=== PATIENT | male | born 1960 | race Caucasian/White ===

== ENCOUNTER → 2017-02-27 | Outpatient (CLI) | payer OTHER ==
[~2017-02-27] MED LIST: ALDACTONE100 MG PO; ALDACTONE50 MG PO; ATIVAN2 MG/ML IV; Aldactone PO; B COMPLETE1 EACH PO; BENTYL20 MG PO; CEFACLOR ER500 MG PO; CHRONULAC,CEPHU30 ML PO; CONSTULOSE10 GM/15 M PO; CORGARD20 MG PO; Chronulac,Cephulac,E PO; ENULOSE10 GM/15 M PO; ERGOCALCIF50000 UNIT PO; FOLIC ACID1 MG PO; FOLVITE1 MG PO; FUROSEMIDE20 MG PO; GENERLAC10 GM/15 M PO; K-DUR20 MEQ PO; K-Dur PO; K-TAB10 MEQ PO; LASIX20 MG PO; LASIX40 MG PO; Lasix PO; MELOXICAM15 MG PO; MICRO-K,K-DUR,10 ME1 PO; MICRO-K10 ME2 PO; NADOLOL20 MG PO; NEXIUM20 MG PO; OMEPRAZOLE20 M1 PO; OMEPRAZOLE20 MG PO; OMEPRAZOLE40 M1 PO; OXYCODONE HCL5 MG PO; OxyCODONE PO; PANTOPRAZOLE SO40 MG PO; POTASSIUM CHLO10 ME3 PO; POTASSIUM CHLO10 ME4 PO; PRILOSEC20 MG PO; PROTONIX40 MG PO; Protonix PO; RANITIDINE HCL150 MG PO; ROXICODONE5 MG PO; SODIUM CHLORIDE1 G1 PO; SPIRONOLACTONE100 MG PO; SPIRONOLACTONE50 MG PO; THIAMINE,VITAM100 MG PO; VITAMIN B-1100 MG PO; VITAMIN B1,100 MG/ML PO; VITAMIN D250000 UNIT PO; VITAMIN D35000 UNIT PO; VITAMIN D35000 UNIT/ PO; VITAMIN D50000 UNI4 PO; Vitamin D, Drisdol PO; Xifaxan PO; oxyCODONE PO
== END | disposition home or self-care (01) ==
LOC: RAD 08:38
DX: R18.8 Other ascites (principal)
CPT/HCPCS: 76705

== ENCOUNTER → 2017-02-28 | Outpatient (CLI) | payer OTHER | END | disposition home or self-care (01) | LOC: RAD 10:00 | PROC: 0W9G3ZZ Drainage of Peritoneal Cavity, Percutaneous Approach (ICD-10-PCS; principal; 2017-02-28) | DX: R18.8 Other ascites (principal) | CPT/HCPCS: 49083 ==

== ENCOUNTER → 2017-03-20 | Outpatient (CLI) | payer OTHER | END | disposition home or self-care (01) | LOC: RAD 03-12 08:30 | PROC: 0W9G3ZZ Drainage of Peritoneal Cavity, Percutaneous Approach (ICD-10-PCS; principal; 2017-03-20) | DX: R18.8 Other ascites (principal) | CPT/HCPCS: 49083 ==

== ENCOUNTER → 2017-05-05 | Outpatient (CLI) | payer OTHER | END | disposition home or self-care (01) | LOC: RAD 04-24 08:15 | PROC: 0W9G3ZZ Drainage of Peritoneal Cavity, Percutaneous Approach (ICD-10-PCS; principal; 2017-05-05) | DX: R18.8 Other ascites (principal) | CPT/HCPCS: 49083 ==

== ENCOUNTER → 2017-06-13 | Outpatient (CLI) | payer OTHER | END | disposition home or self-care (01) | LOC: RAD 05-14 08:15 | PROC: 0W9G3ZZ Drainage of Peritoneal Cavity, Percutaneous Approach (ICD-10-PCS; principal; 2017-06-13) | DX: R18.8 Other ascites (principal) | CPT/HCPCS: 49083 ==

== ENCOUNTER → 2017-07-29 | Outpatient (CLI) | payer OTHER | END | disposition home or self-care (01) | LOC: RAD 06-17 08:15 | PROC: 0W9G3ZZ Drainage of Peritoneal Cavity, Percutaneous Approach (ICD-10-PCS; principal; 2017-07-29) | DX: R18.8 Other ascites (principal) | CPT/HCPCS: 49083 ==

== ENCOUNTER 2017-08-08 09:16 | Day surgery (SDC) | payer OTHER ==
[~2017-08-08] VITALS: Ht 177.8 cm; Wt 99.8 kg
[~2017-08-08 09:16] MED LIST changes: +IRON325 M1 PO
[2017-08-08 10:12] VITALS: BP 113/76
[2017-08-08 10:54] LABS: CHLORIDE 92 MEQ/L (99-109); CREATININE 0.8 MG/DL (0.6-1.3); GFR ESTIMATE (CALCULATED) > 59 mL/min/ (58.99-99999); GLUCOSE 105 mg/dL (70-99); POTASSIUM 4.4 MEQ/L (3.7-5.4); SODIUM 124 MEQ/L (136-147); UREA NITROGEN (BUN) 7 mg/dL (9-23)
[2017-08-08] MEDS ORDERED: NORCO 5/3251 TABLET PO ×2 (13:42→20:46)
[2017-08-08 18:16] LABS: CHLORIDE 97 MEQ/L (99-109); SODIUM 129 MEQ/L (136-147)
[2017-08-08 18:22] LABS: CREATININE 0.9 MG/DL (0.6-1.3); GFR ESTIMATE (CALCULATED) > 59 mL/min/ (58.99-99999); GLUCOSE 96 mg/dL (70-99); UREA NITROGEN (BUN) 6 mg/dL (9-23)
[2017-08-08 21:20] VITALS: BP 122/68
== END 2017-08-08 21:54 | disposition home or self-care (01) ==
LOC: SDC 09:16
PROVIDERS: Surgery
DX: R13.10 Dysphagia, unspecified (principal); I87.8 Other specified disorders of veins; C09.9 Malignant neoplasm of tonsil, unspecified; K70.30 Alcoholic cirrhosis of liver without ascites; G89.29 Other chronic pain; M54.9 Dorsalgia, unspecified; Z82.49 Family history of ischemic heart disease and other diseases of the circulatory system
CPT/HCPCS: 71045; 80048; 80048 91; C1751; C1769; J0690; J2250; J2405; J3010; J7040

== ENCOUNTER 2017-08-09 13:29 | Emergency (ER) | payer OTHER ==
[~2017-08-09] VITALS: Ht 177.8 cm; Wt 99.9 kg
[~2017-08-09 13:29] MED LIST changes: +NORCO 5/3251 TABLET PO
[2017-08-09 15:09] LABS: HEMATOCRIT 42.3 % (38.0-50.0); HEMOGLOBIN 14.5 G/DL (12.5-16.6); MCH 29.2 PG (29.0-34.0); MCHC 34.3 G/DL (30.0-36.0); MCV 85.1 FL (86-99); PLATELET COUNT 90 K/uL (156-360); RBC DIS.WIDTH-CV 14.6 % (11.8-14.6); RBC DIS.WIDTH-SD 45.9 % (39-53); RED BLOOD COUNT 4.97 M/uL (4.00-5.50); WHITE BLOOD COUNT 9.1 K/uL (4.1-10.2)
[2017-08-09 15:18] LABS: INTER. NORMALIZED RATIO 1.3
[2017-08-09 15:19] LABS: ALBUMIN 3.5 g/dL (3.2-4.8); CHLORIDE 95 mEq/L (99-109); POTASSIUM 4.3 mEq/L (3.7-5.4); SODIUM 128 mEq/L (136-147)
[2017-08-09 15:20] LABS: PTT 31.4 SEC (25-37)
[2017-08-09 15:21] LABS: GLUCOSE 97 mg/dL (70-99); TOTAL PROTEIN 6.4 g/dL (6.4-8.3)
[2017-08-09 15:23] LABS: TOTAL BILIRUBIN 2.3 mg/dL (0.0-1.0)
[2017-08-09 15:25] LABS: ALKALINE PHOSPHATASE 86 IU/L (3-129); GFR ESTIMATE (CALCULATED) > 59 mL/min/ (58.99-99999)
[2017-08-09 15:26] LABS: UREA NITROGEN (BUN) 9 mg/dL (9-23)
[2017-08-09 15:27] LABS: AST (GOT) 17 IU/L (2-34)
[2017-08-09 15:28] LABS: ALT (GPT) 9 IU/L (3-49)
[2017-08-09 21:53] VITALS: BP 110/71
== END 2017-08-09 21:54 | disposition home or self-care (01) ==
LOC: EME 13:29
PROVIDERS: Nurse Practitioner Family
PROC: 0W9G3ZZ Drainage of Peritoneal Cavity, Percutaneous Approach (ICD-10-PCS; principal; 2017-08-09)
DX: R18.8 Other ascites (principal); K74.60 Unspecified cirrhosis of liver; K94.29 Other complications of gastrostomy; J35.9 Chronic disease of tonsils and adenoids, unspecified; E87.1 Hypo-osmolality and hyponatremia; D69.6 Thrombocytopenia, unspecified; K21.9 Gastro-esophageal reflux disease without esophagitis; F32.9 Major depressive disorder, single episode, unspecified; Z86.73 Personal history of transient ischemic attack (TIA), and cerebral infarction without residual deficits
CPT/HCPCS: 49083; 80053; 85027; 85610; 85730; 99281; 99285

== ENCOUNTER → 2017-08-12 | Outpatient (CLI) | payer OTHER | END | disposition home or self-care (01) | LOC: RAD 07:52 | PROC: 0WJG3ZZ Inspection of Peritoneal Cavity, Percutaneous Approach (ICD-10-PCS; principal; 2017-08-12) | DX: R18.8 Other ascites (principal); Z53.09 Procedure and treatment not carried out because of other contraindication | CPT/HCPCS: 76705 ==

== ENCOUNTER → 2017-08-21 | Outpatient (CLI) | payer OTHER | END | disposition home or self-care (01) | LOC: RAD 08-20 13:30 | PROC: 0W9G3ZZ Drainage of Peritoneal Cavity, Percutaneous Approach (ICD-10-PCS; principal; 2017-08-21) | DX: R18.8 Other ascites (principal) | CPT/HCPCS: 49083 ==

== ENCOUNTER → 2017-10-07 | Outpatient (CLI) | payer OTHER | END | disposition home or self-care (01) | LOC: RAD 08-26 13:30 | PROC: 0W9G3ZZ Drainage of Peritoneal Cavity, Percutaneous Approach (ICD-10-PCS; principal; 2017-10-07) | DX: R18.8 Other ascites (principal) | CPT/HCPCS: 49083 ==

== ENCOUNTER → 2017-10-21 | Outpatient (CLI) | payer OTHER | END | disposition home or self-care (01) | LOC: RAD 07:36 | PROC: 0W9G3ZZ Drainage of Peritoneal Cavity, Percutaneous Approach (ICD-10-PCS; principal; 2017-10-21) | DX: R18.8 Other ascites (principal) | CPT/HCPCS: 49083 ==

== ENCOUNTER → 2017-10-30 | Outpatient (CLI) | payer OTHER | END | disposition home or self-care (01) | LOC: RAD 07:38 | PROC: 0W9G3ZZ Drainage of Peritoneal Cavity, Percutaneous Approach (ICD-10-PCS; principal; 2017-10-30) | DX: R18.8 Other ascites (principal) | CPT/HCPCS: 49083 ==

== ENCOUNTER → 2017-11-05 | Outpatient (CLI) | payer OTHER | END | disposition home or self-care (01) | LOC: RAD 09:45 | PROC: 0WJG3ZZ Inspection of Peritoneal Cavity, Percutaneous Approach (ICD-10-PCS; principal; 2017-11-05) | DX: R18.8 Other ascites (principal); Z53.09 Procedure and treatment not carried out because of other contraindication | CPT/HCPCS: 76705 ==

== ENCOUNTER → 2017-11-11 | Outpatient (CLI) | payer OTHER | END | disposition home or self-care (01) | LOC: RAD 07:40 | PROC: 0W9G3ZZ Drainage of Peritoneal Cavity, Percutaneous Approach (ICD-10-PCS; principal; 2017-11-11) | DX: R18.8 Other ascites (principal) | CPT/HCPCS: 49083 ==

== ENCOUNTER → 2017-11-21 | Outpatient (CLI) | payer OTHER | END | disposition home or self-care (01) | LOC: RAD 08:00 | PROC: 0WJG3ZZ Inspection of Peritoneal Cavity, Percutaneous Approach (ICD-10-PCS; principal; 2017-11-21) | DX: R18.8 Other ascites (principal); Z53.09 Procedure and treatment not carried out because of other contraindication | CPT/HCPCS: 76705 ==

== ENCOUNTER → 2017-12-01 | Outpatient (CLI) | payer OTHER | END | disposition home or self-care (01) | LOC: RAD 11-13 13:15 | PROC: 0W9G3ZZ Drainage of Peritoneal Cavity, Percutaneous Approach (ICD-10-PCS; principal; 2017-12-01) | DX: R18.8 Other ascites (principal) | CPT/HCPCS: 49083 ==

== ENCOUNTER → 2017-12-09 | Outpatient (CLI) | payer OTHER | END | disposition home or self-care (01) | LOC: RAD 13:04 | PROC: 0W9G3ZZ Drainage of Peritoneal Cavity, Percutaneous Approach (ICD-10-PCS; principal; 2017-12-09) | DX: R18.8 Other ascites (principal) | CPT/HCPCS: 49083 ==

== ENCOUNTER → 2017-12-17 | Outpatient (CLI) | payer OTHER | END | disposition home or self-care (01) | LOC: RAD 12:58 | PROC: 0W9G3ZZ Drainage of Peritoneal Cavity, Percutaneous Approach (ICD-10-PCS; principal; 2017-12-17) | DX: R18.8 Other ascites (principal) | CPT/HCPCS: 49083 ==

== ENCOUNTER → 2017-12-25 | Outpatient (CLI) | payer OTHER ==
[~2017-12-25] MED LIST changes: +ATIVAN1 MG PO; -K-TAB10 MEQ PO; +NEXIUM40 MG PO; +OXYCODONE H5 MG/5 ML PO; +POTASSIUM20 MEQ/11 PO; -VITAMIN D50000 UNI4 PO
== END | disposition home or self-care (01) ==
LOC: RAD 12:50
PROC: 0W9G3ZZ Drainage of Peritoneal Cavity, Percutaneous Approach (ICD-10-PCS; principal; 2017-12-25)
DX: R18.8 Other ascites (principal)
CPT/HCPCS: 49083

== ENCOUNTER → 2017-12-28 | Day surgery (SDC) | payer OTHER ==
[~2017-12-28] VITALS: Ht 180.3 cm; Wt 83.7 kg
[2017-12-28 23:36] VITALS: BP 104/69
== END | disposition home or self-care (01) ==
LOC: EME 21:35 → SDC 23:41 → EME 23:41
PROVIDERS: Physician Assistant
PROC: 0DC18ZZ Extirpation of Matter from Upper Esophagus, Via Natural or Artificial Opening Endoscopic (ICD-10-PCS; principal; 2017-12-28)
DX: T18.128A Food in esophagus causing other injury, initial encounter (principal); Z93.1 Gastrostomy status; K22.2 Esophageal obstruction; Z85.818 Personal history of malignant neoplasm of other sites of lip, oral cavity, and pharynx; K70.30 Alcoholic cirrhosis of liver without ascites; Z92.3 Personal history of irradiation; G89.29 Other chronic pain; M54.9 Dorsalgia, unspecified
CPT/HCPCS: 80048; 80076; 82948; 85027; 85610; 85730; 99281; 99284; J7120

== ENCOUNTER 2017-12-31 07:54 | Inpatient (IN) | payer OTHER ==
[~2017-12-31] VITALS: Ht 177.8 cm; Wt 84.5 kg
[2017-12-31] VITALS (19 sets, daily range): BP systolic 88–118; BP diastolic 48–77
[2017-12-31 08:27] LABS: INTER. NORMALIZED RATIO 1.4
[2017-12-31 08:31] LABS: CHLORIDE 100 mEq/L (99-109); POTASSIUM 4.8 mEq/L (3.7-5.4); SODIUM 133 mEq/L (136-147)
[2017-12-31 08:33] LABS: TOTAL PROTEIN 5.6 g/dL (6.4-8.3)
[2017-12-31 08:35] LABS: TOTAL BILIRUBIN 0.8 mg/dL (0.0-1.0)
[2017-12-31 08:37] LABS: ALKALINE PHOSPHATASE 92 IU/L (3-129); CREATININE 1.1 mg/dL (0.6-1.3); GFR ESTIMATE (CALCULATED) > 59 mL/min/ (58.99-99999)
[2017-12-31 08:38] LABS: BASOPHIL (%) 0.4 % (0-1); BASOPHIL COUNT 0.1 K/uL (0-0.1); EOSINOPHIL (%) 0.7 % (0-5); EOSINOPHIL COUNT 0.1 K/uL (0-0.3); HEMOGLOBIN 10.6 G/DL (12.5-16.6); LYMPHOCYTE (%) 5.6 % (15-42); LYMPHOCYTE COUNT 0.9 K/uL (1.0-2.8); MCH 28.4 PG (29.0-34.0); MCHC 33.1 G/DL (30.0-36.0); MONOCYTE (%) 11.2 % (3-12); MONOCYTE COUNT 1.9 K/uL (0-0.8); NEUTROPHIL (%) 81.1 % (45-76); NEUTROPHIL COUNT 13.6 K/uL (1.8-6.4); RBC DIS.WIDTH-CV 14.6 % (11.8-14.6); RBC DIS.WIDTH-SD 44.9 % (39-53); RED BLOOD COUNT 3.73 M/uL (4.00-5.50); WHITE BLOOD COUNT 16.8 K/uL (4.1-10.2)
[2017-12-31 08:38] LABS: UREA NITROGEN (BUN) 50 mg/dL (9-23)
[2017-12-31 08:39] LABS: MCV 85.8 FL (86-99); PLATELET COUNT 164 K/uL (156-360)
[2017-12-31 08:39] LABS: AST (GOT) 20 IU/L (2-34)
[2017-12-31 08:40] LABS: ALT (GPT) 16 IU/L (3-49); LIPASE 50 U/L (1.0-51.0)
[2017-12-31 09:02] LABS: GLUCOSE 112 mg/dL (70-99)
[2017-12-31 10:33] LABS: HEMATOCRIT 25.7 % (38.0-50.0); MCH 29.1 PG (29.0-34.0); MCHC 33.5 G/DL (30.0-36.0); MCV 86.8 FL (86-99); RBC DIS.WIDTH-CV 14.6 % (11.8-14.6); RBC DIS.WIDTH-SD 45.7 % (39-53); WHITE BLOOD COUNT 12.6 K/uL (4.1-10.2)
[2017-12-31 10:44] LABS: HEMOGLOBIN 8.6 G/DL (12.5-16.6); RED BLOOD COUNT 2.96 M/uL (4.00-5.50)
[2017-12-31 11:03] LABS: PLAT.SUFFICIENCY DECREASED
[2017-12-31 11:07] LABS: PLATELET COUNT 66 K/uL (156-360)
[2017-12-31 11:59] LABS: HIGH-SENS C-REACTIVE PROTEIN 1.74 MG/DL (0.02-0.20)
[2017-12-31 13:29] LABS: THYROTROPIN (TSH) 1.4 MIU/L (0.4-5.5)
[2017-12-31 22:01] LABS: HEMATOCRIT 29.6 % (38.0-50.0); HEMOGLOBIN 10.3 G/DL (12.5-16.6); MCH 29.5 PG (29.0-34.0); MCHC 34.8 G/DL (30.0-36.0); MCV 84.8 FL (86-99); PLATELET COUNT 55 K/uL (156-360); RBC DIS.WIDTH-CV 14.4 % (11.8-14.6); RBC DIS.WIDTH-SD 43.8 % (39-53); RED BLOOD COUNT 3.49 M/uL (4.00-5.50); WHITE BLOOD COUNT 8.2 K/uL (4.1-10.2)
[2018-01-01] VITALS (15 sets, daily range): BP systolic 90–123; BP diastolic 53–87
[2018-01-01 00:44] LABS: HEMATOCRIT 28.1 % (38.0-50.0); HEMOGLOBIN 9.8 G/DL (12.5-16.6); MCV 84.6 FL (86-99)
[2018-01-01 06:58] LABS: HEMATOCRIT 28.4 % (38.0-50.0); HEMOGLOBIN 9.6 G/DL (12.5-16.6); MCH 28.7 PG (29.0-34.0); MCHC 33.8 G/DL (30.0-36.0); PLATELET COUNT 52 K/uL (156-360); RBC DIS.WIDTH-CV 14.6 % (11.8-14.6); RBC DIS.WIDTH-SD 44.8 % (39-53); RED BLOOD COUNT 3.34 M/uL (4.00-5.50)
[2018-01-01 07:08] LABS: INTER. NORMALIZED RATIO 1.4
[2018-01-01 07:27] LABS: ALBUMIN 2.5 G/DL (3.2-4.8); ALKALINE PHOSPHATASE 68 IU/L (3-129); ALT (GPT) 14 IU/L (3-49); AST (GOT) 18 IU/L (2-34); CHLORIDE 107 MEQ/L (99-109); CREATININE 1.2 MG/DL (0.6-1.3); GFR ESTIMATE (CALCULATED) > 59 mL/min/ (58.99-99999); GLUCOSE 124 mg/dL (70-99); POTASSIUM 3.9 MEQ/L (3.7-5.4); SODIUM 137 MEQ/L (136-147); TOTAL BILIRUBIN 1.3 MG/DL (0.0-1.0); TOTAL PROTEIN 4.6 G/DL (6.4-8.3); UREA NITROGEN (BUN) 38 mg/dL (9-23)
[2018-01-01 14:01] LABS: HEMATOCRIT 27.7 % (38.0-50.0); HEMOGLOBIN 9.4 G/DL (12.5-16.6)
== END 2018-01-01 18:34 | disposition short-term general hospital (02) | DRG 391 ==
LOC: EME → EDBD 07:54 → 4WEST 10:38 → EDOF 10:38 → CANRESERV 10:46 → ENRESERV 10:46 → 4WEST 12:17
PROVIDERS: Emergency Medicine; Internal Medicine; Internal Medicine Gastroenterology; Surgery
PROC: 30233N1 Transfusion of Nonautologous Red Blood Cells into Peripheral Vein, Percutaneous Approach (ICD-10-PCS; principal; 2017-12-31)
PROC: 0DJ08ZZ Inspection of Upper Intestinal Tract, Via Natural or Artificial Opening Endoscopic (ICD-10-PCS; 2017-12-31)
PROC: 3E1H78Z Irrigation of Lower GI using Irrigating Substance, Via Natural or Artificial Opening (ICD-10-PCS; 2017-12-31)
DX: K22.2 Esophageal obstruction (principal); K92.0 Hematemesis; K76.6 Portal hypertension; J69.0 Pneumonitis due to inhalation of food and vomit; K70.30 Alcoholic cirrhosis of liver without ascites; E86.0 Dehydration; F10.21 Alcohol dependence, in remission; K31.89 Other diseases of stomach and duodenum; M54.9 Dorsalgia, unspecified; K27.4 Chronic or unspecified peptic ulcer, site unspecified, with hemorrhage; I85.11 Secondary esophageal varices with bleeding; D69.6 Thrombocytopenia, unspecified; K21.9 Gastro-esophageal reflux disease without esophagitis; D73.1 Hypersplenism; D50.0 Iron deficiency anemia secondary to blood loss (chronic); Y84.2 Radiological procedure and radiotherapy as the cause of abnormal reaction of the patient, or of later complication, without mention of misadventure at the time of the procedure; Z85.818 Personal history of malignant neoplasm of other sites of lip, oral cavity, and pharynx; Z92.21 Personal history of antineoplastic chemotherapy; Z92.3 Personal history of irradiation; Z86.73 Personal history of transient ischemic attack (TIA), and cerebral infarction without residual deficits; Z93.1 Gastrostomy status
CPT/HCPCS: 80053; 82140; 82533 91; 83605; 83690; 84145 90; 84443; 85014; 85018; 85025; 85027; 85610; 86141; 86850; 86900; 86901; 86920; 87641; 93005; 99281; 99285; C9113; J2354; J2405; J2543; J3010; J3411; J7030; J7050; P9016

== ENCOUNTER → 2018-01-07 | Outpatient (CLI) | payer OTHER | END | disposition home or self-care (01) | LOC: AMB 09:58 | PROC: 0DH63UZ Insertion of Feeding Device into Stomach, Percutaneous Approach (ICD-10-PCS; principal; 2018-01-07) | DX: T85.528A Displacement of other gastrointestinal prosthetic devices, implants and grafts, initial encounter (principal); Z85.818 Personal history of malignant neoplasm of other sites of lip, oral cavity, and pharynx; Z92.3 Personal history of irradiation; Z92.21 Personal history of antineoplastic chemotherapy; K70.30 Alcoholic cirrhosis of liver without ascites; G89.29 Other chronic pain; M54.9 Dorsalgia, unspecified; Z79.891 Long term (current) use of opiate analgesic | CPT/HCPCS: J2250 ==

== ENCOUNTER → 2018-01-13 | Outpatient (CLI) | payer OTHER | END | disposition home or self-care (01) | LOC: RAD 13:06 | PROC: 0W9G3ZZ Drainage of Peritoneal Cavity, Percutaneous Approach (ICD-10-PCS; principal; 2018-01-13) | DX: R18.8 Other ascites (principal) | CPT/HCPCS: 49083 ==

== ENCOUNTER → 2018-01-20 | Outpatient (CLI) | payer OTHER | END | disposition home or self-care (01) | LOC: RAD 12:58 | PROC: 0W9G3ZZ Drainage of Peritoneal Cavity, Percutaneous Approach (ICD-10-PCS; principal; 2018-01-20) | DX: R18.8 Other ascites (principal) | CPT/HCPCS: 49083 ==

== ENCOUNTER → 2018-01-27 | Outpatient (CLI) | payer OTHER | END | disposition home or self-care (01) | LOC: RAD 12-30 13:30 | PROC: 0W9G3ZZ Drainage of Peritoneal Cavity, Percutaneous Approach (ICD-10-PCS; principal; 2018-01-27) | DX: R18.8 Other ascites (principal) | CPT/HCPCS: 49083 ==

== ENCOUNTER → 2018-02-03 | Outpatient (CLI) | payer OTHER | END | disposition home or self-care (01) | LOC: RAD 01-06 13:15 | PROC: 0WJG3ZZ Inspection of Peritoneal Cavity, Percutaneous Approach (ICD-10-PCS; principal; 2018-02-03) | DX: R18.8 Other ascites (principal); Z53.09 Procedure and treatment not carried out because of other contraindication | CPT/HCPCS: 76705 ==

== ENCOUNTER → 2018-02-05 | Outpatient (CLI) | payer OTHER | END | disposition home or self-care (01) | LOC: RAD 08:12 | PROC: 0W9G3ZZ Drainage of Peritoneal Cavity, Percutaneous Approach (ICD-10-PCS; principal; 2018-02-05) | DX: R18.8 Other ascites (principal) | CPT/HCPCS: 49083 ==